=== PATIENT | female | born 2000 | race Caucasian/White ===

== ENCOUNTER 2023-06-28 21:51 | Emergency (ER) | payer MEDICAID ==
[~2023-06-28] VITALS: Ht 147.3 cm; Wt 53.0 kg
[2023-06-28 22:23] VITALS: BP 103/67; PULSE 72; RESP 18; TEMP 98; O2SAT 100
[2023-06-28 23:33] LABS: CLARITY URINE TURBID (CLEAR); COLOR URINE YELLOW (YELLOW); GLUCOSE URINE NEGATIVE (NEGATIVE); KETONES URINE NEGATIVE (NEGATIVE); LEUKOCYTE ESTERASE URINE 2+ (NEGATIVE); NITRITE URINE NEGATIVE (NEGATIVE); OCCULT BLOOD URINE TRACE (NEGATIVE); PH URINE 6.5 (4.5-8.0); PROTEIN URINE NEGATIVE (NEGATIVE); SPECIFIC GRAVITY URINE 1.018 (1.005-1.030); UROBILINOGEN URINE 0.2 E.U./dL (0.2-1.0)
[2023-06-29 00:16] LABS: SQUAMOUS EPITHELIAL CELL URINE FEW /lpf (RARE/1+)
[2023-06-29 00:17] LABS: RBC URINE NONE SEEN /hpf (0-2); WBC URINE 0-2 /hpf (0-2)
[2023-06-29 00:19] LABS: BACTERIA URINE 1+
[2023-06-29] MEDS ORDERED: CEPH500C2 MT (00:27)
== END 2023-06-29 01:04 | disposition home or self-care (01) ==
LOC: ER 21:51
DX: N39.0 Urinary tract infection, site not specified (principal); J45.909 Unspecified asthma, uncomplicated
CPT/HCPCS: 81003; 81025; 99283

== ENCOUNTER 2025-01-12 20:08 | Emergency (ER) | payer MEDICAID ==
[~2025-01-12] VITALS: Ht 152.4 cm; Wt 55.0 kg
[~2025-01-12 20:08] MED LIST: CEPH500C2 MT
[2025-01-12 20:16] VITALS: O2SAT 100
[2025-01-12 21:02] VITALS: TEMP 37.2
[2025-01-12 21:02] LABS: BASOPHILS % 0.5 % (0.0-2.0); EOSINOPHILS % 0.9 % (0.0-5.0); HEMATOCRIT. 37.6 % (36.0-48.0); HEMOGLOBIN. 12.7 g/dL (12.0-16.0); LYMPHOCYTES % 39.0 % (20.0-50.0); MEAN PLATELET VOLUME 10.7 fl (7.4-10.4); MONOCYTES % 6.4 % (2.0-8.0); NEUTROPHILS % 53.2 % (40.0-76.0); PLATELET 156 x1000/uL (130-400); RED BLOOD CELL COUNT 4.31 mill/uL (4.2-5.4); RED CELL DISTRIBUTION WIDTH 14.4 % (11.6-14.6)
[2025-01-12 21:14] LABS: CREATININE 0.7 mg/dL (0.6-1.0)
[2025-01-12 21:15] LABS: ETHANOL BLOOD < 10 mg/dL (<10); UREA NITROGEN BLOOD 8 mg/dL (9-23)
[2025-01-12 21:16] LABS: ASPARTATE AMINOTRANSFERASE 18 IU/L (<34)
[2025-01-12 21:17] LABS: BILIRUBIN DIRECT 0.2 mg/dL (<=3.0); BILIRUBIN TOTAL 0.6 mg/dL (0.1-1.0); PROTEIN TOTAL 6.6 g/dL (6.0-8.3)
[2025-01-12 21:19] LABS: CLARITY URINE CLEAR (CLEAR); GLUCOSE URINE NEGATIVE (NEGATIVE); KETONES URINE NEGATIVE (NEGATIVE); LEUKOCYTE ESTERASE URINE NEGATIVE (NEGATIVE); NITRITE URINE NEGATIVE (NEGATIVE); OCCULT BLOOD URINE TRACE (NEGATIVE); PH URINE 6.5 (4.5-8.0); PROTEIN URINE NEGATIVE (NEGATIVE); SPECIFIC GRAVITY URINE 1.003 (1.005-1.030); UROBILINOGEN URINE 0.2 E.U./dL (0.2-1.0)
[2025-01-12] MEDS: SODIUM CHLORIDE 0.9% 1,000 ML IV ONE (21:20)
[2025-01-12] MEDS: METOCLOPRAMIDE HCL 10MG/2ML VIAL IV ONE (21:20)
[2025-01-12] MEDS: MORPHINE SULFATE 4 MG/ML INJ (FOR IV/IM USE) IV ONE (21:21)
[2025-01-12 21:22] LABS: HCG SCREEN NEGATIVE
[2025-01-12 21:23] LABS: INR 1.0
[2025-01-12 21:38] LABS: COLOR URINE STRAW (YELLOW)
[2025-01-12 21:39] LABS: BACTERIA URINE NONE SEEN; RBC URINE NONE SEEN /hpf (0-2); SQUAMOUS EPITHELIAL CELL URINE 2+ /lpf (RARE/1+); WBC URINE 0-2 /hpf (0-2)
[2025-01-12 23:01] VITALS: BP 112/76; PULSE 76; RESP 21; O2SAT 98
[2025-01-12] MEDS: IOHEXOL-300 100 ML BOTTLE ONE (23:26)
== END 2025-01-13 00:36 | disposition home or self-care (01) ==
LOC: ER 20:08 → CMPBEDREQ 01-13 08:49
DX: R14.0 Abdominal distension (gaseous) (principal); G89.18 Other acute postprocedural pain; R10.84 Generalized abdominal pain; J45.909 Unspecified asthma, uncomplicated; Z79.899 Other long term (current) drug therapy
CPT/HCPCS: 80076; 80048; 81003; 80320; 84703; 83690; 85025; 85610; 85730; 86850; 86900; 86901; 36415; 74177; 96374; 96375; 99285; Q9967; J2765; J2270; J7030; G0480